=== PATIENT | female | born 1940 | race Caucasian/White ===

== ENCOUNTER 2022-06-09 23:14 | Emergency (ER) | payer MEDICARE, SELFPAY ==
--- NOTE | ~2022-06-09 | XR_ITS ---
Portable chest x-ray Comparison: None Clinical History: CVA Findings: Lungs are clear, without focal consolidation or pleural effusion. Cardiomediastinal silho uette is unremarkable. Bones and soft tissues are unremarkable. Impression: Clear lungs. Reviewed, dictated and finalized at location M. CONTROLLER Impression: Clear lungs.
--- NOTE | ~2022-06-09 | CT_ITS ---
CT ANGIOGRAM NECK AND HEAD History: CVA. Technique: Axial noncontrast imaging of the brain was performed. Serial spiral axial images through t he head and neck were then obtained during arterial phase IV injection of 100 cc of Omnipaque 350. 3- D postprocessing and MIP images were then reconstructed on the remote workstation. Dose reduction wilfrid hnique was used on this scan by utilizing automated exposure control and iterative reconstruction wilfrid hnique. The dose-length product (DLP) was 1599.21 mGy-cm. FINDINGS: Axial noncontrast imaging of the brain demonstrate a 2.7 x 2.2 cm acute parenchymal hemorrh age in the high posterior right parietal lobe, with mild surrounding vasogenic edema. CTA neck findings: Bilateral vertebral arteries are patent. Bile common carotid, internal carotid, a nd external carotid arteries are patent. Several tiny calcified plaques are present at the carotid bi furcation regions bilaterally. The proximal right internal carotid artery demonstrates 0% stenosis re lative to the normal distal artery lumen diameter. The proximal left internal carotid artery demonstr ates 0% stenosis relative to the normal distal artery lumen diameter. Mild to moderate emphysema noted at the lung apices. CTA head findings: Distal vertebral arteries, basilar artery, and posterior cerebral arteries are pat ent. Distal internal carotid arteries, middle cerebral arteries, and anterior cerebral arteries are p atent. No large vessel occlusion. No stenosis or aneurysm. Impression: 2.7 x 2.2 cm parenchymal hemorrhage in the high posterior right parietal lobe. Diagnostic considerati ons include hemorrhagic infarct versus primary parenchymal hemorrhage such as hypertensive hemorrhage . No significant vascular abnormality identified on CT angiographic examination of the head and neck. Emphysematous changes of the lung apices. Reviewed, dictated and finalized at location M. DENT PROGRAM SPECIALIST Impression: 2.7 x 2.2 cm parenchymal hemorrhage in the high posterior right parietal lobe. Diagnostic considerations include hemorrhagic infarct versus primary parenchyma l hemorrhage such as hypertensive hemorrhage. No significant vascular abnormality identified on CT angiographic examination o f the head and neck. Emphysematous changes of the lung apices.
[2022-06-09 23:13] VITALS: BP 176/96; PULSE 103; RESP 20; TEMP 37; O2SAT 93
[2022-06-09 23:21] VITALS: PULSE 98
[2022-06-09 23:21] LABS: Glucose Point of Care 154 mg/dl (65-105)
--- NOTE | 2022-06-09 23:34 | ED.GENADULT ---
HPI - General Adult General Chief complaint: Seizure Stated complaint: SZ Time Seen by Provider: 06/09/22 23:22 History of Present Illness HPI narrative: 82-year-old female with no past medical history presents via EMS. Patient was acting erratically at home began to have tonic-clonic seizure activity in route to our hospital. Patient has minimal recollection of the events which brought her here demonstrates left-sided neglect on exam. Patient to CT scanner. Related Data Allergies Allergy/AdvReac Type Severity Reaction Status Date / Time No Known Allergies Allergy Verified 06/09/22 23:59 Review of Systems Review of Systems: CONSTITUTIONAL: Denies fever, chills, or sweats. EYES: Denies visual changes, redness, or discharge. ENT: Denies rhinorrhea, congestion, sore throat, or otalgia. CARDIOVASCULAR: Denies chest pain, palpitations, or edema. RESPIRATORY: Denies cough or dyspnea. GASTROINTESTINAL: Denies abdominal pain, nausea, vomiting, or diarrhea. GENITOURINARY: Denies dysuria or hematuria. SKIN: Denies rash or itching. MUSCULOSKELETAL: Denies back pain, joint pain, or myalgia. NEUROLOGIC: Denies headache, numbness, or weakness. PSYCHIATRIC: Denies anxiety or depression. Exam Narrative: GENERAL: Well-appearing, well-nourished, and in no acute distress. HEAD: Normocephalic, atraumatic. EYES: PERRLA and EOMI. ENT: Nares clear, no rhinorrhea or epistaxis. Mucous membranes moist. NECK: Supple. CHEST: Clear to auscultation. No respiratory distress. HEART: Regular rate and rhythm. No murmur heard. Normal peripheral pulses. ABDOMEN: Soft, nontender, nondistended, normal active bowel sounds. EXTREMITIES: Normal range of motion. No edema. SKIN: Warm, dry, no rash. NEURO: Left-sided neglect, 5 out of 5 strength in all extremities, no memory of seizure-like activity but patient is answering questions appropriately in our department, . PSYCH: Normal mood and affect. Course Vital Signs Vital signs: Vital Signs Temperature 98.6 F 06/09/22 23:13 Pulse Rate 103 H 06/09/22 23:13 Respiratory Rate 20 06/09/22 23:13 Blood Pressure 176/96 H 06/09/22 23:13 Pulse Oximetry 93 06/09/22 23:13 Oxygen Delivery Room Air 06/09/22 23:13 Temperature 98.6 F 06/09/22 23:13 Pulse Rate 81 06/10/22 02:46 Respiratory Rate 17 06/10/22 02:46 Blood Pressure 132/63 06/10/22 02:46 Pulse Oximetry 96 06/10/22 02:46 Oxygen Delivery Room Air 06/09/22 23:20 Medical Decision Making MDM Narrative Medical decision making narrative: CT with a small acute lobar intraparenchymal hemorrhage in the right parieto-occipital lobe measuring 2.5 x 2.4 x 2 cm. Mild surrounding edema. Nicardipine drip has been started to keep systolic pressure between 1 40-1 60. I discussed the case with from [facility] and Dr. Brantley has accepted the transfer to the emergency department. Patient continues to demonstrate a left-sided neglect but is mentating appropriately and following all commands. I have explained all lab and imaging findings to both patient and her family members who are at bedside. Her cousin and employment officer is here and questions if she may have a DNR although he does not have the paperwork and is not her POA. Vital Signs Vital Signs: Vital Signs Temperature 98.6 F 06/09/22 23:13 Pulse Rate 103 H 06/09/22 23:13 Respiratory Rate 20 06/09/22 23:13 Blood Pressure 176/96 H 06/09/22 23:13 Pulse Oximetry 93 06/09/22 23:13 Oxygen Delivery Room Air 06/09/22 23:13 Temperature 98.6 F 06/09/22 23:13 Pulse Rate 81 06/10/22 02:46 Respiratory Rate 17 06/10/22 02:46 Blood Pressure 132/63 06/10/22 02:46 Pulse Oximetry 96 06/10/22 02:46 Oxygen Delivery Room Air 06/09/22 23:20 Lab Data 06/09/22 23:48 06/09/22 23:48 Labs: Lab Results 06/09/22 06/09/22 06/09/22 Range/Units 23:17 23:48 23:48 WBC 14.9 H (4.5-10.0) K/mm3 RBC 4.4
--- NOTE | 2022-06-09 23:36 | ECG_ITS ---
Measurements Intervals [place] Rate: 101 P: 86 KS: 204 QRS: 60 QRSD: 81 T: 78 QT: 337 QTc: 439 Interpretive Statements SINUS TACHYCARDIA ATRIAL TRIPLET BASELINE ARTIFACT- I, III, AVR, AVL, AVF, V1-V2, V4-V6 BORDERLINE ECG NO PREVIOUS ECG AVAILABLE FOR COMPARISON Electronically Signed On 06-10-2022 7:04:47 RESEARCH CHEMICAL ENGINEER by Markie Trent D.O.
[2022-06-09 23:46] VITALS: BP 184/94; PULSE 103; RESP 17; O2SAT 96
[2022-06-09 23:55] LABS: Basophils Absolute Auto 0.1 K/mm3 (0.0-0.1); Basophils Percent Auto 0.5 % (0.2-1.2); Eosinophils Percent Auto 0.1 % (0-4.4); Hematocrit 43.6 % (37.0-47.0); Hemoglobin 14.2 g/dL (12.0-15.0); Immature Granulocyte Absolute 0.13 K/mm3 (0.00-0.031); Immature Granulocyte Percent A 0.9 % (0-0.5); Lymphocytes Absolute Auto 1.31 K/mm3 (0.9-3.2); Lymphocytes Percent Auto 8.8 % (18.3-44.2); Mean Corpuscular HGB Conc 32.6 g/dl (32-36); Mean Corpuscular Hemoglobin 31.8 pg (26-34); Mean Corpuscular Volume 97.8 fl (80-100); Mean Platelet Volume 9.7 fl (7.4-10.4); Monocytes Absolute Auto 0.9 K/mm3 (0.1-0.6); Neutrophils Absolute Auto 12.4 K/mm3 (1.3-6.7); Neutrophils Percent Auto 83.7 % (45.5-73.1); Platelet Count Result 236 k/mm3 (150-375); Red Blood Count 4.46 M/mm3 (4.2-5.4); White Blood Count 14.9 K/mm3 (4.5-10.0)
[2022-06-10] VITALS (18 sets, daily range): BP systolic 124–179; BP diastolic 58–97; PULSE 76–104; RESP 15–23; O2SAT 94–97
--- NOTE | 2022-06-10 00:01 | PC.NURSE ---
Notified MD Chaudhari of patient BP being 184/94. awaiting orders at this time.
[2022-06-10 00:05] LABS: Prothrombin Time 12.9 Seconds (11.1-14.7)
[2022-06-10 00:07] LABS: Partial Thromboplastin Time 29.1 SECONDS (22.3-36.8)
[2022-06-10 00:12] LABS: Alanine Aminotransferase 19 U/L (6-35); Alkaline Phosphatase 67 U/L (38-126); Anion Gap 8 mmol/L (8-16); Aspartate Amino Transferase 23 U/L (14-36); Bilirubin,Total 0.6 mg/dL (0.2-1.3); Blood Urea Nitrogen 13 mg/dL (7-17); Calcium 8.7 mg/dL (8.4-10.2); Carbon Dioxide 28 mmol/L (22-30); Chloride 99 mmol/L (98-107); Estimated CRCL calculation 34 ml/min; Estimated Glomerular Filt Rate 60; Glucose 147 mg/dL (65-110); Potassium 3.6 mmol/L (3.4-5.0); Sodium 135 mmol/L (137-145)
[2022-06-10 00:13] LABS: Appearance Urine Clear (Clear); Bilirubin Urine Negative (Negative); Blood Urine Trace-intact (Negative); Color Urine Yellow (Yellow); Glucose Urine UA Negative (Negative); Ketones Urine Negative (Negative); Leukocyte Esterase Ur Negative LEU/UL (Negative); Nitrate Urine Negative (Negative); Protein Urine Negative (Negative); Specific Grav Ur 1.015 (1.001-1.035); Urobilinogen Urine 0.2 mg/dL (<2.0); pH Urine 7.5 (5.0-9.0)
[2022-06-10 00:15] LABS: Mucus Urine Rare /lpf; RBC Urine 0-2 /hpf (0-2); Squamous Epithelial Cell Urine Rare /hpf (Few); WBC Urine 0-3 /hpf
[2022-06-10 00:18] LABS: Add Urine Microscopic? YES
[2022-06-10] MEDS: niCARdipine 20 MG/200 ML 20 MG/200 ML BAG 50 MG IV CONT (00:20)
[2022-06-10 00:23] LABS: Troponin I < 0.012 ng/mL (0.000-0.034)
[2022-06-10] MEDS: levETIRAcetam 1000MG/NACL100ML 1,000 MG/100 ML BAG 400 MG IVPB (00:44)
== END 2022-06-10 03:00 | disposition short-term general hospital (02) ==
PROVIDERS: Emergency Provider Emergency Medicine; PCP Family Medicine
DX: G40.909 Epilepsy, unspecified, not intractable, without status epilepticus (principal); I62.9 Nontraumatic intracranial hemorrhage, unspecified
CPT/HCPCS: 36415; 70496; 70498; 71045; 80053; 81001; 82948; 84484; 85025; 85610; 85730; 93005; 96365; 96366; 96368; 99285; J1953; Q9967

== ENCOUNTER 2023-06-07 07:24 | Outpatient (RCR) | payer OTHER, MEDICARE, SELFPAY ==
[2023-06-07] VITALS (12 sets, daily range): BP systolic 84–109; BP diastolic 39–54; PULSE 62–68; RESP 18–20; TEMP 36.9–37.2; O2SAT 94–100
[2023-06-07 07:58] LABS: Hematocrit 24.9 % (37.0-47.0)
[2023-06-07 08:05] LABS: Hemoglobin 6.6 g/dL (12.0-15.0)
--- NOTE | 2023-06-07 08:19 | PC.NURSE ---
Called Dr. Nixon, discussed critical lab values and vital signs. Stated all 3 bp's of 78/33, 84/35 and 84/39. Pt denies any symptoms at this time. Asked about benadryl beforehand and lasix in between units. stated to change benadryl to prn for itchiness and hold lasix d/t low blood pressure.
[2023-06-07] MEDS: FAMOTIDINE 20 MG TABLET PO (09:08)
[2023-06-07] MEDS: SODIUM CHLORIDE 0.9% IV 250 ML 30 ML IV CONT (09:08)
[2023-06-07] MEDS: ACETAMINOPHEN 325 MG TABLET 650 MG PO (09:09)
--- NOTE | 2023-06-07 15:45 | PC.NURSE ---
Pt. with void and small stool mix via [facility]. Noted foul smell and black to mindi liquid. No solid pieces noted in stool. Notified Dr. Nixon's office at [phone], spoke w/ nurse, Delphine. Notified of black to mindi liquid stool in urine and foul odor. States she will let Dr. Nixon know. Pt. denies pain, sob, abdominal pain. VSS. Also made nurse Delphine aware that pt. is prescribed Toprol XL 100mg po bid at [facility]; this am on arrival for blood transfusion, pt. had low bp that was called to Dr. Nixon and resulted in pre med of Benadryl 25mg po being held and Lasix 20mg ivp x 1 between units of blood being held. Pt. and Sofya MARCUM, aware call made to office to report above.
== END 2023-09-05 23:59 | disposition home or self-care (01) ==
LOC: ANHCPCTRAN 07:24
PROVIDERS: PCP Hospitalist; Visit Provider Family Medicine
DX: D64.9 Anemia, unspecified (principal)
CPT/HCPCS: 36415; 36430; 85014; 85018; 86850; 86900; 86901; 86923; A9270; J7050; P9016

== ENCOUNTER 2023-06-21 02:56 | Inpatient (IN) | payer MEDICARE, SELFPAY ==
[2023-06-21] VITALS (14 sets, daily range): BP systolic 125–155; BP diastolic 60–81; PULSE 72–103; RESP 15–18; TEMP 36.4–37; O2SAT 98–100
--- NOTE | ~2023-06-21 | CT_ITS ---
EXAMINATION: CT abdomen pelvis w con DATE: 06/21/2023 05:08 INDICATION: Gastrointestinal hemorrhage TECHNIQUE: Computed tomography (CT) of the abdomen and pelvis was performed with 100 mL Omnipaque 350 intravenous contrast. Automated exposure control and iterative reconstruction technique were employe d. The dose-length product was 202.45 mGy-cm. COMPARISON: None. FINDINGS: The visualized portions of the lung bases demonstrate small pleural effusions and mild depe ndent atelectasis. Cardiomegaly is noted. There is a small pericardial effusion. There are cysts in t he liver measuring up to 13 mm. The gallbladder, spleen, pancreas, and adrenal glands are normal. The re are cysts in the kidneys measuring up to 3.4 cm on the right. There is calcified atherosclerosis o f the aorta and many of the other arteries. There is a 3.4 cm fusiform aneurysm of infrarenal aorta. There are no dilated loops of bowel. The appendix is not visualized. There are no pathologically enla rged lymph nodes. There is no free intraperitoneal fluid. There is an old healed fracture of proximal left femur with internal fixation. There is severe thoracic and lumbar spondylosis. IMPRESSION: 1. Small pleural effusions. 2. Small pericardial effusion. 3. 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 Reviewed, dictated and finalized at location A. LOPMENT TRAINER
--- NOTE | ~2023-06-21 | MR_ITS ---
EXAMINATION: MR pelvis wo/w con DATE: 06/25/2023 10:00 INDICATION: Rectal adenocarcinoma. TECHNIQUE: Magnetic resonance imaging (MRI) of the pelvis was performed without and with 9 mL MultiHa nce intravenous contrast. COMPARISON: CT abdomen and pelvis 06/21/2023 FINDINGS: There is focal wall thickening of the rectum involving the posterior and left sides of the rectum. Th e distal margin of the wall thickening is 3 cm from the anorectal junction. Imaging is not sufficient ly high resolution for T stage determination. No abnormal lymph nodes are identified. There is trace pelvic ascites. There is internal fixation of proximal left femur. 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 There are small bilateral hip joint effusions. There is severe lumbar spondylosis. IMPRESSION: 1. Focal wall thickening of the rectum, consistent with primary adenocarcinoma. Insufficient imaging resolution for T stage determination. 2. No abnormal lymphadenopathy. Reviewed, dictated and finalized at location A. LOOM WEAVER
[2023-06-21] MEDS: SODIUM CHLORIDE 0.9% IV 1,000 ML 999 ML IV CONT (03:36)
[2023-06-21 03:55] LABS: Basophils Absolute Auto 0.1 K/mm3 (0.0-0.1); Basophils Percent Auto 0.9 % (0.2-1.2); Eosinophils Absolute Auto 0.3 K/mm3 (0-0.3); Eosinophils Percent Auto 5.8 % (0-4.4); Hematocrit 21.6 % (37.0-47.0); Immature Granulocyte Absolute 0.01 K/mm3 (0.00-0.031); Immature Granulocyte Percent A 0.2 % (0-0.5); Lymphocytes Absolute Auto 1.47 K/mm3 (0.9-3.2); Lymphocytes Percent Auto 25.9 % (18.3-44.2); Mean Corpuscular HGB Conc 28.2 g/dl (32-36); Mean Corpuscular Hemoglobin 28.8 pg (26-34); Mean Corpuscular Volume 101.9 fl (80-100); Mean Platelet Volume 9.9 fl (7.4-10.4); Monocytes Absolute Auto 0.5 K/mm3 (0.1-0.6); Monocytes Percent Auto 9.3 % (2.6-8.5); Neutrophils Absolute Auto 3.3 K/mm3 (1.3-6.7); Neutrophils Percent Auto 57.9 % (45.5-73.1); Platelet Count Result 254 k/mm3 (150-375); Red Blood Count 2.12 M/mm3 (4.2-5.4); Red Cell Distribution Width 22.4 % (11.5-14.5); White Blood Count 5.7 K/mm3 (4.5-10.0)
[2023-06-21 03:59] LABS: Appearance Urine Clear (Clear); Bacteria Urine None Seen /hpf; Bilirubin Urine Negative (Negative); Color Urine Yellow (Yellow); Glucose Urine UA 1+ mg/dL (Negative); Ketones Urine Negative (Negative); Leukocyte Esterase Ur Negative LEU/UL (Negative); Nitrate Urine Negative (Negative); Non Pathogenic Casts 0-2; Protein Urine Negative (Negative); RBC Urine 0-2 /hpf (0-2); Specific Grav Ur 1.013 (1.001-1.035); Squamous Epithelial Cell Urine None seen /hpf (Few); Urobilinogen Urine 0.2 mg/dL (<2.0); WBC Urine 0-5 /hpf
[2023-06-21 04:01] LABS: Hemoglobin 6.1 g/dL (12.0-15.0)
[2023-06-21 04:02] LABS: Anisocytosis 1+ (NORMAL); Hypochromasia 1+ (NORMAL); Platelet Estimate Adequate (Adequate); Schistocytes None Seen (NORMAL)
[2023-06-21 04:05] LABS: Prothrombin Time 13.3 Seconds (11.1-14.7)
[2023-06-21 04:06] LABS: Alanine Aminotransferase 9 U/L (6-35); Albumin Level 2.6 g/dL (3.5-5.1); Alkaline Phosphatase 56 U/L (38-126); Anion Gap 0 mmol/L (8-16); Aspartate Amino Transferase 19 U/L (14-36); Bilirubin,Total 0.3 mg/dL (0.2-1.3); Blood Urea Nitrogen 17 mg/dL (7-17); Calcium 8.5 mg/dL (8.4-10.2); Carbon Dioxide 36 mmol/L (22-30); Chloride 101 mmol/L (98-107); Estimated CRCL calculation 40 ml/min; Estimated Glomerular Filt Rate > 60; Glucose 87 mg/dL (65-110); Lipase 125 U/L (23-300); Magnesium 2.4 mg/dL (1.6-2.3); Partial Thromboplastin Time 29.5 SECONDS (22.3-36.8); Potassium 4.1 mmol/L (3.4-5.0); Sodium 137 mmol/L (137-145)
--- NOTE | 2023-06-21 04:07 | ED.GENADULT ---
HPI - General Adult General Chief complaint: Recheck/Abnormal Lab/Rx Stated complaint: abd labs Time Seen by Provider: 06/21/23 03:10 History of Present Illness HPI narrative: patient 83-year-old female presents emergency department with chief complaint of low blood counts. Patient is resident of a local nursing facility and apparently had blood work done today that showed that she had a hemoglobin of 5.7 the patient currently has no complaints denies chest pain denies abdominal pain denies shortness of breath incidentally the patient does report that she has had some black stool the patient denies being on blood thinners and review of the patient's medical records from the nursing facility is not on anticoagulants. Related Data Home Medications Medication Instructions Recorded Confirmed acetaminophen 500 mg capsule 500 mg PO Q6H PRN Pain 06/07/23 06/09/23 buspirone 5 mg tablet 5 mg PO BID 06/07/23 06/09/23 cholecalciferol (vitamin D3) 25 50 mcg PO DAILY 06/07/23 06/09/23 mcg (1,000 unit) tablet dapagliflozin propanediol 10 mg 10 mg PO DAILY 06/07/23 06/09/23 tablet (Farxiga) ferrous sulfate 325 mg (65 mg 325 mg PO BID 06/07/23 06/09/23 iron) tablet,delayed release fexofenadine 180 mg tablet 180 mg PO DAILY PRN Allergy 06/07/23 06/09/23 Symptoms fluticasone propionate 50 2 spray intranasal DAILY PRN 06/07/23 06/09/23 mcg/actuation nasal Allergy Symptoms spray,suspension ipratropium 0.5 mg-albuterol 3 mg 3 ml inhalation Q6H PRN Shortness 06/07/23 06/09/23 (2.5 mg base)/3 mL nebulization Of Breath Or Wheezing soln levetiracetam 500 mg tablet 500 mg PO BID 06/07/23 06/09/23 lisinopril 20 mg tablet 20 mg PO BID 06/07/23 06/09/23 metoprolol succinate 100 mg 100 mg PO BID 06/07/23 06/09/23 tablet,extended release 24 hr (Toprol XL) pantoprazole 40 mg tablet,delayed 40 mg PO BID 06/07/23 06/09/23 release sertraline 50 mg tablet 50 mg PO DAILY 06/07/23 06/09/23 spironolactone 50 mg tablet 50 mg PO DAILY 06/07/23 06/09/23 sucralfate 100 mg/mL oral 10 ml PO QID 06/07/23 06/09/23 suspension Allergies Allergy/AdvReac Type Severity Reaction Status Date / Time No Known Allergies Allergy Verified 06/07/23 08:35 Review of Systems Review of Systems: A 10 system review of systems was completed on the patient and is negative except for what is stated in the HPI. Nursing and ancillary documentation was reviewed. [facility] Social History Social History Years smoked: 50 Smoking status: Former smoker Tobacco type: cigarettes Second hand tobacco smoke exposure: No Smoking end date: 06/09/22 Alcohol intake: former Substance use: never Substance use type: does not use Spiritual care concerns: No Exam Narrative: GENERAL: Well-appearing, well-nourished, and in no acute distress. HEAD: Normocephalic, atraumatic. EYES: PERRLA and EOMI. ENT: Nares clear, no rhinorrhea or epistaxis. Mucous membranes moist. NECK: Supple. CHEST: Clear to auscultation. No respiratory distress. HEART: Regular rate and rhythm. No murmur heard. Normal peripheral pulses. ABDOMEN: Soft, nontender, nondistended, normal active bowel sounds. : Stool is black / will colored and is guaiac positive EXTREMITIES: Normal range of motion. No edema. SKIN: Warm, dry, no rash. NEURO: No focal deficits. Alert and oriented x3. PSYCH: Normal mood and affect. Course Vital Signs Vital signs: Vital Signs Temperature 37.0 C 06/21/23 02:58 Pulse Rate 93 06/21/23 02:58 Respiratory Rate 15 06/21/23 02:58 Blood Pressure 138/71 06/21/23 02:58 Pulse Oximetry 99 06/21/23 02:58 Oxygen Delivery Room Air 06/21/23 02:58 Temperature 36.6 C 06/21/23 05:51 Pulse Rate 77 06/21/23 06:28 Respiratory Rate 15 06/21/23 06:28 Blood Pressure 147/81 H 06/21/23 06:28 Pulse Oximetry 100 06/21/23 06:28 Oxygen Delivery Nasal Can
[2023-06-21 04:08] LABS: Add Urine Microscopic? YES
[2023-06-21] MEDS: SODIUM CHLORIDE 0.9% IV 250 ML 30 ML IV CONT (05:10)
[2023-06-21 05:19] LABS: Lactic Acid Reflex 0.6 mmol/L (0.7-2.0)
[2023-06-21] MEDS: PANTOPRAZOLE SODIUM IV 40 MG VIAL IV PUSH (05:58)
[2023-06-21 07:15] LABS: Iron 44 ug/dL (37-170)
[2023-06-21 07:24] LABS: Percent Iron Saturation 16 % (20-50)
[2023-06-21 07:27] LABS: Hematocrit 25.7 % (37.0-47.0); Hemoglobin 7.5 g/dL (12.0-15.0)
[2023-06-21 08:18] LABS: Folic Acid 8.5 ng/mL (2.76->20)
--- NOTE | 2023-06-21 10:55 | ADMGEN ---
This patient, Daly Mary, was admitted to [facility] Surg Room 312-01 @0912. Patient/family oriented to hospital policies and general routines including ID bracelet, bed and alarms, visiting hours, pain management, procedures, bathroom and other care routines, personal items, smoking policy, room service/diet, and visiting hours. Information on how to activate the Rapid Response Team has been discussed. Patient/Family are encouraged to report perceived risks to care and to ask questions if they do not understand what they are told or what they should do.
[2023-06-21] MEDS: IRON SUCROSE COMPLEX 400 MG in SODIUM CHLORIDE 0.9% IV 250 ML 108 MG IVPB (11:37)
[2023-06-21 13:14] LABS: Hematocrit 25.6 % (37.0-47.0); Hemoglobin 7.6 g/dL (12.0-15.0)
--- NOTE | 2023-06-21 14:02 | WPDGICN ---
Assessment and Plan Assessment and plan (1) Acute GI bleeding: Code(s): K92.2 - Gastrointestinal hemorrhage, unspecified Status: Acute Assessment and Plan: She has had black stools for the couple weeks. She believes that she had an EGD here a few weeks ago and was told that nothing was found. I suspect the procedure was done at another institution. (2) Seizures: Code(s): R56.9 - Unspecified convulsions Status: Acute Assessment and Plan: She is on medication for seizures and has not had any recently (3) Anemia: Code(s): D64.9 - Anemia, unspecified Status: Acute Assessment and Plan: her hemoglobin was 6.1 this morning. Last summer was 8.2 indicating that she is chronically anemic. This however is quite low and concerning. She is receiving 1 unit of iron at this time. Plan I will begin her on a prep for colonoscopy. Will also try to find out where she had that EGD. Blood counts we monitored. She may need transfusion she has been started on pantoprazole empirically. GI Consult Note Consult date/time: 06/21/23 14:02 HPI: Daly Mary is a 83 year old female who was brought to emergency room when she was found to have a very low hemoglobin at the [facility] where she has been rehabilitating. She was feeling fatigued and hemoglobin was found to be 5.7. She has not seen blood her stools but states that often she has black stool particularly if she passes gas. She has had no abdominal pain or nausea or vomiting. She is chronically on pantoprazole. She states that in the past year she has been in and out of nursing facility is a couple of times. First she had a stroke last summer. she was in rehab for while after that. Then she fell and broke her hip and was back in rehab. She went back for the 3rd time about 3 weeks ago. She tells me that she had an EGD few weeks ago and they did not find anything and told her that she would probably need a colonoscopy. She thought she had the procedure done here but there is no record in our system of that. she has never had a colonoscopy. She has never had disorders of the colon such as colitis, diverticulitis is not aware of any family history of such. Review of Systems Review of Systems: All systems reviewed & are unremarkable except as noted in HPI and below PMFSH Social History Social History Years smoked: 50 Smoking status: Former smoker Second hand tobacco smoke exposure: No Smoking end date: 05/16/22 Alcohol intake: former Substance use: never Substance use type: does not use Do You Feel Safe in your Home?: Yes Lack of Transportation: No Lack of Food: Never True Current Housing: I Have Housing Concerned About Future Housing: No Difficulty Paying Gas/Electric Bills: No Difficulty Paying for Meds: No Currently Unemployed: No Education: High School Diploma/GED Difficulty w/ Childcare or Family Care: No Spiritual care concerns: No Meds Home Medications and Allergies Home Medications Medication Instructions Recorded Confirmed Type acetaminophen 500 mg capsule 500 mg PO Q6H PRN Pain 06/07/23 06/21/23 History buspirone 5 mg tablet 5 mg PO BID 06/07/23 06/21/23 History cholecalciferol (vitamin D3) 25 50 mcg PO DAILY 06/07/23 06/21/23 History mcg (1,000 unit) tablet dapagliflozin propanediol 10 mg 10 mg PO DAILY 06/07/23 06/21/23 History tablet (Farxiga) ferrous sulfate 325 mg (65 mg 325 mg PO BID 06/07/23 06/21/23 History iron) tablet,delayed release fexofenadine 180 mg tablet 180 mg PO DAILY PRN Allergy 06/07/23 06/21/23 History Symptoms fluticasone propionate 50 2 spray intranasal DAILY PRN 06/07/23 06/21/23 History mcg/actuation nasal Allergy Symptoms spray,suspension ipratropium 0.5 mg-albuterol 3 mg 3 ml inhalation Q6H PRN Shortness 06/07/23 06/21/23 History (2.5 mg base)/3 mL n
--- NOTE | 2023-06-21 14:16 | PM.IMHP ---
H&P: HPI History of Present Illness Date/Time: 06/21/23 14:16 Chief Complaint: low hemoglobin Narrative: 83 yo female with recent hip fracture and ICH who presented from rehab on account of anemia, patient stated she has been having intermittent blood in stool the past 3 months which started back the past couple of days, noted occasional lightheadedness, denies any abd pain, vomiting, no focal weakness, no dysuria. ER eval notable for hb 6.6 and received 2 units of pRBC, CT AP showed small pleural and pericardial effusion and 3.4 cm AAA. Gi consulted and patient scheduled for colonoscopy today. GI eval noted radha had recent EGD Review of Systems Review of Systems: all other systems reviewed and negative except as noted in the [facility] Social History Social History Years smoked: 50 Smoking status: Former smoker Second hand tobacco smoke exposure: No Smoking end date: 05/16/22 Alcohol intake: former Substance use: never Substance use type: does not use Do You Feel Safe in your Home?: Yes Lack of Transportation: No Lack of Food: Never True Current Housing: I Have Housing Concerned About Future Housing: No Difficulty Paying Gas/Electric Bills: No Difficulty Paying for Meds: No Currently Unemployed: No Education: High School Diploma/GED Difficulty w/ Childcare or Family Care: No Spiritual care concerns: No Meds Home Medications and Allergies Home Medications Medication Instructions Recorded Confirmed Type acetaminophen 500 mg capsule 500 mg PO Q6H PRN Pain 06/07/23 06/21/23 History buspirone 5 mg tablet 5 mg PO BID 06/07/23 06/21/23 History cholecalciferol (vitamin D3) 25 50 mcg PO DAILY 06/07/23 06/21/23 History mcg (1,000 unit) tablet dapagliflozin propanediol 10 mg 10 mg PO DAILY 06/07/23 06/21/23 History tablet (Farxiga) ferrous sulfate 325 mg (65 mg 325 mg PO BID 06/07/23 06/21/23 History iron) tablet,delayed release fexofenadine 180 mg tablet 180 mg PO DAILY PRN Allergy 06/07/23 06/21/23 History Symptoms fluticasone propionate 50 2 spray intranasal DAILY PRN 06/07/23 06/21/23 History mcg/actuation nasal Allergy Symptoms spray,suspension ipratropium 0.5 mg-albuterol 3 mg 3 ml inhalation Q6H PRN Shortness 06/07/23 06/21/23 History (2.5 mg base)/3 mL nebulization Of Breath Or Wheezing soln levetiracetam 500 mg tablet 500 mg PO BID 06/07/23 06/21/23 History lisinopril 20 mg tablet 20 mg PO BID 06/07/23 06/21/23 History metoprolol succinate 100 mg 50 mg PO BID 06/07/23 06/21/23 History tablet,extended release 24 hr (Toprol XL) pantoprazole 40 mg tablet,delayed 40 mg PO BID 06/07/23 06/21/23 History release sertraline 50 mg tablet 50 mg PO DAILY 06/07/23 06/21/23 History spironolactone 50 mg tablet 50 mg PO DAILY 06/07/23 06/21/23 History sucralfate 100 mg/mL oral 10 ml PO QID 06/07/23 06/21/23 History suspension albuterol sulfate 2.5 mg/3 mL 2.5 mg inhalation BID PRN SOB 06/21/23 06/21/23 History (0.083 %) solution for nebulization amlodipine 5 mg tablet 5 mg PO DAILY pain 06/21/23 06/21/23 History dextromethorphan-guaifenesin 30 1 tablet PO Q12H PRN Cough 06/21/23 06/21/23 History mg-600 mg tablet extended [id number] hr (Mucinex DM) hydrocodone 5 mg-acetaminophen 325 1 tablet PO Q4H PRN Pain 06/21/23 06/21/23 History mg tablet loperamide 2 mg capsule (Imodium 2 mg PO Q4H PRN Diarrhea 06/21/23 06/21/23 History A-D) Allergies Allergy/AdvReac Type Severity Reaction Status Date / Time No Known Allergies Allergy Verified 06/07/23 08:35 Vital Signs Vital Signs - 24 hr 06/21/23 02:58 06/21/23 05:20 06/21/23 05:20 Temperature 98.6 F Pulse Rate 93 81 Respiratory Rate 15 15 Blood Pressure 138/71 127/68 Pulse Oximetry 99 100 100 Oxygen Delivery Room Air Nasal Cannula Oxygen Flow Rate 3 06/21/23 05:35 06/21/23 05:51 06/21/23 06:28 T
--- NOTE | 2023-06-21 14:34 | PC.NURSE ---
Per Dr Chu hold unit of blood until results of 1300 H&H. Admin if hemoglobin drops below 7.
[2023-06-21] MEDS: polyethylene glycoL 3350 238 GM BOTTLE PO (16:06)
[2023-06-21] MEDS: BISACODYL 5 MG TABLET EC 10 MG PO ×2 (16:06→21:37)
[2023-06-21 21:10] LABS: Hematocrit 27.8 % (37.0-47.0); Hemoglobin 7.9 g/dL (12.0-15.0)
[2023-06-22] VITALS (13 sets, daily range): BP systolic 134–165; BP diastolic 51–86; PULSE 78–90; RESP 16–20; TEMP 35.8–36.9; O2SAT 92–100
[2023-06-22 01:43] LABS: Hematocrit 24.1 % (37.0-47.0); Hemoglobin 7.1 g/dL (12.0-15.0)
[2023-06-22 06:41] LABS: Basophils Absolute Auto 0.1 K/mm3 (0.0-0.1); Eosinophils Absolute Auto 0.2 K/mm3 (0-0.3); Eosinophils Percent Auto 4.7 % (0-4.4); Hematocrit 25.5 % (37.0-47.0); Hemoglobin 7.4 g/dL (12.0-15.0); Immature Granulocyte Absolute 0.02 K/mm3 (0.00-0.031); Immature Granulocyte Percent A 0.4 % (0-0.5); Lymphocytes Absolute Auto 0.74 K/mm3 (0.9-3.2); Lymphocytes Percent Auto 15.2 % (18.3-44.2); Mean Corpuscular Hemoglobin 28.8 pg (26-34); Mean Corpuscular Volume 99.2 fl (80-100); Mean Platelet Volume 9.7 fl (7.4-10.4); Monocytes Absolute Auto 0.4 K/mm3 (0.1-0.6); Monocytes Percent Auto 9.1 % (2.6-8.5); Neutrophils Absolute Auto 3.4 K/mm3 (1.3-6.7); Neutrophils Percent Auto 69.6 % (45.5-73.1); Platelet Count Result 223 k/mm3 (150-375); Red Blood Count 2.57 M/mm3 (4.2-5.4); Red Cell Distribution Width 21.9 % (11.5-14.5); White Blood Count 4.9 K/mm3 (4.5-10.0)
[2023-06-22] MEDS: MAGNESIUM CITRATE 300 ML BTL 150 ML PO (06:49)
[2023-06-22 07:12] LABS: Anisocytosis 1+ (NORMAL); Hypochromasia 1+ (NORMAL); Platelet Estimate Adequate (Adequate); Schistocytes None Seen (NORMAL)
[2023-06-22 07:19] LABS: Lactic Acid Reflex 1.1 mmol/L (0.7-2.0)
[2023-06-22 07:23] LABS: Alanine Aminotransferase 9 U/L (6-35); Albumin Level 2.3 g/dL (3.5-5.1); Alkaline Phosphatase 49 U/L (38-126); Anion Gap -1 mmol/L (8-16); Aspartate Amino Transferase 17 U/L (14-36); Bilirubin,Total 0.4 mg/dL (0.2-1.3); Blood Urea Nitrogen 9 mg/dL (7-17); Calcium 8.1 mg/dL (8.4-10.2); Carbon Dioxide 30 mmol/L (22-30); Chloride 106 mmol/L (98-107); Estimated CRCL calculation 46 ml/min; Estimated Glomerular Filt Rate > 60; Glucose 99 mg/dL (65-110); Potassium 3.4 mmol/L (3.4-5.0); Sodium 135 mmol/L (137-145)
[2023-06-22] MEDS: PANTOPRAZOLE SODIUM IV 40 MG VIAL IV PUSH (08:49)
[2023-06-22] MEDS: ALBUMIN HUMAN 25% 25 GM/100 ML 100 ML IVPB (10:18)
[2023-06-22] MEDS: IRON SUCROSE COMPLEX 300 MG in SODIUM CHLORIDE 0.9% IV 250 ML 177 MG IVPB (11:57)
--- NOTE | 2023-06-22 12:59 | PC.NURSE ---
patient to GI lab via stretcher
[2023-06-22] MEDS: LACTATED RINGERS 1,000 ML 150 ML IV CONT (13:36)
--- NOTE | 2023-06-22 13:52 | WPDANESEPPF ---
Anes - Initial Pre Proc Eval Procedure: Operation Date: 06/22/23 14:00 Proposed Procedures p Colonoscopy - Den Andrade MD Date/Time: 06/22/23 13:52 Surgeon: Belkis Porter DO Pre Op Diagnosis: GI Bleed/ Anemia Patient Data Age: 83 Gender: F Height: 1.55 m Weight: 47.2 kg Last Vital Signs Temp 97.9 F 06/22/23 13:25 Pulse 88 06/22/23 13:25 Resp 18 06/22/23 13:25 BP 159/71 H 06/22/23 13:25 Pulse Ox 98 06/22/23 13:25 O2 Del Method Room Air 06/22/23 13:25 O2 Flow Rate 2 06/22/23 12:58 Allergies Allergy/AdvReac Type Severity Reaction Status Date / Time No Known Allergies Allergy Verified 06/22/23 13:22 Home Medications Medication Instructions Recorded Confirmed Type acetaminophen 500 mg capsule 500 mg PO Q6H PRN Pain 06/07/23 06/21/23 History buspirone 5 mg tablet 5 mg PO BID 06/07/23 06/21/23 History cholecalciferol (vitamin D3) 25 50 mcg PO DAILY 06/07/23 06/21/23 History mcg (1,000 unit) tablet dapagliflozin propanediol 10 mg 10 mg PO DAILY 06/07/23 06/21/23 History tablet (Farxiga) ferrous sulfate 325 mg (65 mg 325 mg PO BID 06/07/23 06/21/23 History iron) tablet,delayed release fexofenadine 180 mg tablet 180 mg PO DAILY PRN Allergy 06/07/23 06/21/23 History Symptoms fluticasone propionate 50 2 spray intranasal DAILY PRN 06/07/23 06/21/23 History mcg/actuation nasal Allergy Symptoms spray,suspension ipratropium 0.5 mg-albuterol 3 mg 3 ml inhalation Q6H PRN Shortness 06/07/23 06/21/23 History (2.5 mg base)/3 mL nebulization Of Breath Or Wheezing soln levetiracetam 500 mg tablet 500 mg PO BID 06/07/23 06/21/23 History lisinopril 20 mg tablet 20 mg PO BID 06/07/23 06/21/23 History metoprolol succinate 100 mg 50 mg PO BID 06/07/23 06/21/23 History tablet,extended release 24 hr (Toprol XL) pantoprazole 40 mg tablet,delayed 40 mg PO BID 06/07/23 06/21/23 History release sertraline 50 mg tablet 50 mg PO DAILY 06/07/23 06/21/23 History spironolactone 50 mg tablet 50 mg PO DAILY 06/07/23 06/21/23 History sucralfate 100 mg/mL oral 10 ml PO QID 06/07/23 06/21/23 History suspension albuterol sulfate 2.5 mg/3 mL 2.5 mg inhalation BID PRN SOB 06/21/23 06/21/23 History (0.083 %) solution for nebulization amlodipine 5 mg tablet 5 mg PO DAILY pain 06/21/23 06/21/23 History dextromethorphan-guaifenesin 30 1 tablet PO Q12H PRN Cough 06/21/23 06/21/23 History mg-600 mg tablet extended hr (Mucinex DM) hydrocodone 5 mg-acetaminophen 325 1 tablet PO Q4H PRN Pain 06/21/23 06/21/23 History mg tablet loperamide 2 mg capsule (Imodium 2 mg PO Q4H PRN Diarrhea 06/21/23 06/21/23 History A-D) Laboratory Tests 06/21/23 06/21/23 06/22/23 03:28 21:02 01:22 WBC RBC Hgb 7.9 L g/dL 7.1 L g/dL (12.0-15.0) (12.0-15.0) Hct 27.8 L % 24.1 L % (37.0-47.0) (37.0-47.0) MCV MCH MCHC RDW Plt Count MPV Immature Gran % (Auto) Neut % (Auto) Lymph % (Auto) [place] % (Auto) Eos % (Auto) Baso % (Auto) Lymph # (Auto) [place] # (Auto) Eos # (Auto) Baso # (Auto) Abs Immat Gran (auto) Absolute Neuts (auto) Absolute Nucleated RBC Nucleated RBC % Platelet Estimate Hypochromasia Anisocytosis Schistocytes Sodium Potassium Chloride Carbon Dioxide Anion Gap BUN Creatinine Estim Creat Clear Calc Estimated GFR Glucose Lactic Acid Calcium Total Bilirubin AST ALT Alkaline Phosphatase Total Protein Albumin
--- NOTE | 2023-06-22 16:11 | PM.IMPN ---
Progress Note: A&P Assessment and Plan (1) Anemia: Code(s): D64.9 - Anemia, unspecified Status: Acute Assessment and Plan: hb 7.6, pretransfusion iron profile isat 16, IV iron 700/1000mg monitor h and H, transfusion threshold at 7 got hb (2) Acute GI bleeding: Code(s): K92.2 - Gastrointestinal hemorrhage, unspecified Status: Acute Assessment and Plan: For colonoscopy today IVF monitor (3) Hypertension: Code(s): I10 - Essential (primary) hypertension Status: Acute Assessment and Plan: titrate home meds with clinical course (4) Femur fracture, left: Code(s): S72.92XA - Unspecified fracture of left femur, initial encounter for closed fracture Status: Acute Assessment and Plan: continue PT/OT, PRn pain control will continue rehab on discharge (5) Seizures: Code(s): R56.9 - Unspecified convulsions Status: Acute Assessment and Plan: continue home meds (6) Intraparenchymal hemorrhage of brain: Code(s): I61.9 - Nontraumatic intracerebral hemorrhage, unspecified Status: Acute Assessment and Plan: No anticoagulation and antiplatelets (7) AAA (abdominal aortic aneurysm): Code(s): I71.40 - Abdominal aortic aneurysm, without rupture, unspecified Status: Acute Assessment and Plan: 3.4cm continue outpatient monitoring Plan No Ac due to recent ICh Subjective Date/time seen: 06/22/23 16:11 Interval history: comfortable and awaiting colonoscopy today Review of Systems Review of Systems: all other systems reviewed and negative except as noted in the HPI Exam HENMT: Ears: TM's normal bilaterally Eyes: General: appearance normal, both eyes and all related structures Neck: Neck: supple and no JVD Resp: Effort & Inspection: normal respiratory effort Auscultation: clear to auscultation bilaterally Cardio: Rate: regular rate Rhythm: regular rhythm Skin: General skin exam: normal color and no rashes or lesions noted Neuro: Motor exam (neuro): 5/5 motor strength present throughout Extrem: General: normal to inspection and normal exam except as noted Objective Data Vital Signs Vital Signs: Vital Signs - 24 hr 06/21/23 21:12 06/21/23 20:00 06/21/23 20:00 Temperature 98.2 F Pulse Rate 84 84 103 H Respiratory Rate 16 16 Blood Pressure 155/80 H Pulse Oximetry 98 98 Oxygen Delivery Nasal Cannula Oxygen Flow Rate 2 06/22/23 00:00 06/22/23 04:00 06/22/23 06:27 Temperature 97.9 F Pulse Rate 89 78 80 Respiratory Rate 16 Blood Pressure 143/69 H Pulse Oximetry 98 Oxygen Delivery Oxygen Flow Rate 06/22/23 08:00 06/22/23 12:58 06/22/23 12:00 Temperature Pulse Rate 80 80 Respiratory Rate Blood Pressure Pulse Oximetry 92 Oxygen Delivery Nasal Cannula Oxygen Flow Rate 2 06/22/23 13:25 06/22/23 15:05 06/22/23 15:15 Temperature 97.9 F Pulse Rate 88 89 80 Respiratory Rate 18 17 20 Blood Pressure 159/71 H 135/51 L 134/54 L Pulse Oximetry 98 98 100 Oxygen Delivery Room Air Room Air Room Air Oxygen Flow Rate 06/22/23 15:25 Temperature Pulse Rate 90 Respiratory Rate 20 Blood Pressure 157/71 H Pulse Oximetry 100 Oxygen Delivery Room Air Oxygen Flow Rate Intake/Output Intake/Output: Intake & Output 06/19/23 06/20/23 06/21/23 06/22/23 23:59 23:59 23:59 23:59 Intake Total 2650 200 Output Total 1 Balance 2649 200 Meds/Results Medications: Active Medications Generic Name Dose Route Start Last Admin Trade Name Freq PRN Reason Stop Dose Admin Pantoprazole Sodium 40 mg 06/22/23 09:00 06/22/23 08:49 Pantoprazole Sodium Iv 40 Mg Vial IV PUSH 40 mg QAM MELIZA Administration Radiology Results: ITS Impressions Abdomen/Pelvis CT 06/21/23 05:57 IMPRESSION: 1. Small pleural effusions. 2. Small pericardial effusion. 3. 3.4 cm fusiform aneurysm of infra
[2023-06-22] MEDS: ACETAMINOPHEN 500 MG TABLET PO (20:41)
[2023-06-23] VITALS (8 sets, daily range): BP systolic 115–164; BP diastolic 58–99; PULSE 73–97; RESP 16–18; TEMP 36.1–36.9; O2SAT 91–100
[2023-06-23] MEDS: ALBUMIN HUMAN 25% 25 GM/100 ML 100 ML IVPB (10:10)
[2023-06-23] MEDS: PANTOPRAZOLE SODIUM IV 40 MG VIAL IV PUSH (10:11)
--- NOTE | 2023-06-23 10:19 | PM.CNGS ---
Assessment and Plan Assessment and plan (1) Rectal mass: Code(s): K62.89 - Other specified diseases of anus and rectum Status: Acute Assessment and Plan: I have reviewed the imaging and the endoscopy report. Patient has evidence of rectal mass at 8 cm from the anal verge. Biopsies are still pending. She will need repeat endoscopy with tattooing to adequately identify this either surgically or at follow-up endoscopies. Pending results of the biopsy, she will also likely need an MRI of her pelvis. This mass appears very low in the rectum and at 8 cm I would likely recommend referral to a colorectal surgeon for evaluation. She will also likely need to see medical and radiation oncology if this is cancer. If she is not actively bleeding, much of this can be performed as an outpatient after she is discharged. Will continue to follow patient and await pathology results. (2) HTN (hypertension), benign: Code(s): I10 - Essential (primary) hypertension Status: Acute (3) History of intracranial hemorrhage: Code(s): Z86.79 - Personal history of other diseases of the circulatory system Status: Acute History of Present Illness Consult details Consult date: 06/23/23 Reason for consult: other (Rectal mass) Requesting physician: Den Andrade MD Narrative: This is an 83-year-old woman who I am asked to see for a rectal mass. She was sent to the [facility] department [facility] for a new finding of significant anemia. [facility]. She had been experiencing intermittent blood in her stool for about the last 3 or 4 months. She denies any rectal pain but was occasionally having some diarrhea. She had never had a colonoscopy before. She underwent colonoscopy on 06/22/2023 and a rectal mass was identified at 8 cm from the anal verge. Biopsies were performed. She did have a CT abdomen and pelvis on 06/21/2023 which did not show any signs of metastases. Biopsies are still pending and no further workup has been performed yet. Review of Systems Review of Systems: All systems reviewed & are unremarkable except as noted in HPI and below Constitutional: Constitutional: Denies chills and Denies fever(s) Eyes: Eyes: Denies change in vision ENT: Denies hearing loss, Denies neck pain and Denies sore throat Cardiovascular: Cardiovascular: Denies chest pain and Denies dyspnea Respiratory: Respiratory: Denies cough, Denies dyspnea and Denies wheezing Gastrointestinal: Gastrointestinal: Reports as per HPI Genitourinary: Genitourinary: Denies hematuria and Denies dysuria Musculoskeletal: Musculoskeletal: Denies arthralgias, Denies joint swelling and Denies neck pain Allergic/Immunologic: Allergic/Immunologic: Denies wheezing [facility] Past Medical History Medical History (Updated 06/23/23 @ 10:29 by Nolan Louis DO) History of intracranial hemorrhage HTN (hypertension), benign Seizure Surgical History Surgical History (Updated 06/23/23 @ 10:27 by Nolan Louis DO) History of repair of hip fracture Family History Family History (Updated 06/23/23 @ 10:28 by Nolan Louis DO) Grandparent Carcinoma of colon Social History Social History Years smoked: 50 Smoking status: Former smoker Second hand tobacco smoke exposure: No Smoking end date: 05/16/22 Alcohol intake: former Substance use: never Substance use type: does not use Do You Feel Safe in your Home?: Yes Lack of Transportation: No Lack of Food: Never True Current Housing: I Have Housing Concerned About Future Housing: No Difficulty Paying Gas/Electric Bills: No Difficulty Paying for Meds: No Currently Unemployed: No Education: High School Diploma/GED Difficulty w/ Childcare or Family Care: No Spiritual care concerns: No Meds Home Medications and Allergies
[2023-06-23] MEDS: IRON SUCROSE COMPLEX 300 MG in SODIUM CHLORIDE 0.9% IV 250 ML 177 MG IVPB (13:14)
--- NOTE | 2023-06-23 13:45 | PM.IMPN ---
Progress Note: A&P Assessment and Plan (1) Anemia: Code(s): D64.9 - Anemia, unspecified Status: Acute Assessment and Plan: hb 7.4, pretransfusion iron profile isat 16, IV iron 700/1000mg monitor h and H, transfusion threshold at 7 got hb monitor one more day (2) Acute GI bleeding: Code(s): K92.2 - Gastrointestinal hemorrhage, unspecified Status: Acute Assessment and Plan: For colonoscopy today IVF monitor (3) Hypertension: Code(s): I10 - Essential (primary) hypertension Status: Acute Assessment and Plan: titrate home meds with clinical course (4) Femur fracture, left: Code(s): S72.92XA - Unspecified fracture of left femur, initial encounter for closed fracture Status: Acute Assessment and Plan: continue PT/OT, PRn pain control will continue rehab on discharge (5) Seizures: Code(s): R56.9 - Unspecified convulsions Status: Acute Assessment and Plan: continue home meds (6) Intraparenchymal hemorrhage of brain: Code(s): I61.9 - Nontraumatic intracerebral hemorrhage, unspecified Status: Acute Assessment and Plan: No anticoagulation and antiplatelets (7) AAA (abdominal aortic aneurysm): Code(s): I71.40 - Abdominal aortic aneurysm, without rupture, unspecified Status: Acute Assessment and Plan: 3.4cm continue outpatient monitoring (8) Rectal mass: Code(s): K62.89 - Other specified diseases of anus and rectum Status: Acute Assessment and Plan: s/p colonoscopy GSurgery eval noted, GI will continue follow outpatient Will monitor patient one more day and if hemoglobin continue to be stable Plan No Ac due to recent ICh Subjective Date/time seen: 06/23/23 13:45 Interval history: Colonoscopy showed rectal mass Presented with GI bleed with severe anemia requiring blood transfusion GI and Gen surgery on board and recommending outpatient follow up will monitor patient one more night for possible discharge tomorrow if Hb remains stable Review of Systems Review of Systems: all other systems reviewed and negative except as noted in the HPI Exam HENMT: Ears: TM's normal bilaterally Eyes: General: appearance normal, both eyes and all related structures Neck: Neck: supple and no JVD Resp: Effort & Inspection: normal respiratory effort Auscultation: clear to auscultation bilaterally Cardio: Rate: regular rate Rhythm: regular rhythm Skin: General skin exam: normal color and no rashes or lesions noted Neuro: Motor exam (neuro): 5/5 motor strength present throughout Extrem: General: normal to inspection and normal exam except as noted Objective Data Vital Signs Vital Signs: Vital Signs - 24 hr 06/22/23 15:05 06/22/23 15:15 06/22/23 15:25 Temperature Pulse Rate 89 80 90 Respiratory Rate 17 20 20 Blood Pressure 135/51 L 134/54 L 157/71 H Pulse Oximetry 98 100 100 Oxygen Delivery Room Air Room Air Room Air Oxygen Flow Rate 06/22/23 14:00 06/22/23 19:55 06/22/23 21:44 Temperature 96.4 F L 98.4 F Pulse Rate 81 90 80 Respiratory Rate 16 20 18 Blood Pressure 165/86 H 138/68 Pulse Oximetry 100 100 100 Oxygen Delivery Room Air Oxygen Flow Rate 06/23/23 00:00 06/23/23 04:00 06/23/23 05:57 Temperature 98.1 F Pulse Rate 80 73 80 Respiratory Rate 18 Blood Pressure 145/77 H Pulse Oximetry 99 Oxygen Delivery Oxygen Flow Rate 06/23/23 09:16 Temperature Pulse Rate Respiratory Rate Blood Pressure Pulse Oximetry 91 Oxygen Delivery Nasal Cannula Oxygen Flow Rate 3 Intake/Output Intake/Output: Intake & Output 06/20/23 06/21/23 06/22/23 06/23/23 23:59 23:59 23:59 23:59 Intake Total 2650 440 390 Output Total 1 200 Balance 2649 240 390 Meds/Results Medications: Active Medications Generic Name Dose Route Start Last Admin Trade Name Freq PRN
--- NOTE | 2023-06-23 14:03 | WPDANESPN ---
Anes - Prog Note Post-Op Date/Time: 06/23/23 14:03 Cardiovascular status: normal Respiratory status: normal Airway patency: baseline Mental status: baseline Post-Op hydration status: normal Vital Signs: Last Vital Signs Temp 96.9 F L 06/23/23 13:55 Pulse 91 06/23/23 13:55 Resp 16 06/23/23 13:55 BP 115/58 L 06/23/23 13:55 Pulse Ox 99 06/23/23 13:55 O2 Del Method Nasal Cannula 06/23/23 09:16 O2 Flow Rate 3 06/23/23 09:16 Pain Score (VAS): 0 I/O: Intake & Output 06/22/23 06/23/23 06/23/23 23:59 07:59 15:59 Intake Total 240 50 580 Output Total 200 Balance 40 50 580 Laboratory Tests 06/22/23 06:03 06/22/23 06:03 Post-procedural complaints: none Patient Feedback: Patient satisfied with anesthetic care.
[2023-06-24] VITALS (7 sets, daily range): BP systolic 110–160; BP diastolic 60–81; PULSE 70–103; RESP 16–20; TEMP 36.2–37.2; O2SAT 96–100
[2023-06-24 07:21] LABS: Basophils Percent Auto 0.7 % (0.2-1.2); Eosinophils Absolute Auto 0.3 K/mm3 (0-0.3); Eosinophils Percent Auto 6.6 % (0-4.4); Hematocrit 26.2 % (37.0-47.0); Hemoglobin 7.5 g/dL (12.0-15.0); Immature Granulocyte Absolute 0.01 K/mm3 (0.00-0.031); Immature Granulocyte Percent A 0.2 % (0-0.5); Lymphocytes Absolute Auto 0.87 K/mm3 (0.9-3.2); Lymphocytes Percent Auto 21.4 % (18.3-44.2); Mean Corpuscular HGB Conc 28.6 g/dl (32-36); Mean Corpuscular Hemoglobin 28.7 pg (26-34); Mean Corpuscular Volume 100.4 fl (80-100); Mean Platelet Volume 9.3 fl (7.4-10.4); Monocytes Absolute Auto 0.4 K/mm3 (0.1-0.6); Monocytes Percent Auto 9.6 % (2.6-8.5); Neutrophils Absolute Auto 2.5 K/mm3 (1.3-6.7); Neutrophils Percent Auto 61.5 % (45.5-73.1); Platelet Count Result 192 k/mm3 (150-375); Red Blood Count 2.61 M/mm3 (4.2-5.4); Red Cell Distribution Width 20.3 % (11.5-14.5); White Blood Count 4.1 K/mm3 (4.5-10.0)
[2023-06-24 07:32] LABS: Alanine Aminotransferase 8 U/L (6-35); Albumin Level 2.9 g/dL (3.5-5.1); Alkaline Phosphatase 50 U/L (38-126); Anion Gap 0 mmol/L (8-16); Aspartate Amino Transferase 18 U/L (14-36); Bilirubin,Total 0.4 mg/dL (0.2-1.3); Blood Urea Nitrogen 7 mg/dL (7-17); Calcium 8.3 mg/dL (8.4-10.2); Carbon Dioxide 34 mmol/L (22-30); Chloride 103 mmol/L (98-107); Estimated CRCL calculation 46 ml/min; Estimated Glomerular Filt Rate > 60; Glucose 89 mg/dL (65-110); Magnesium 2.3 mg/dL (1.6-2.3); Potassium 3.7 mmol/L (3.4-5.0); Sodium 137 mmol/L (137-145)
--- NOTE | 2023-06-24 12:16 | WPDGIPROGNO ---
Progress Note: A&P Assessment and Plan (1) Acute GI bleeding: Code(s): K92.2 - Gastrointestinal hemorrhage, unspecified Status: Acute Assessment and Plan: She has had black stools for the couple weeks. She believes that she had an EGD here a few weeks ago and was told that nothing was found. I suspect the procedure was done at another institution. colonoscopy did reveal a rectal mass. Biopsies confirm adenocarcinoma. Surgery has seen her. It is our impression she would be best served at institution with dedicated colorectal surgery. She states that she has already discussed this with her family. From my perspective she can be discharged. (2) Seizures: Code(s): R56.9 - Unspecified convulsions Status: Acute Assessment and Plan: She is on medication for seizures and has not had any recently (3) Anemia: Code(s): D64.9 - Anemia, unspecified Status: Acute Assessment and Plan: her hemoglobin was 6.1 this morning. Last summer was 8.2 indicating that she is chronically anemic. This however is quite low and concerning. She is receiving 1 unit of iron at this time. Blood counts are stable now Plan I will begin her on a prep for colonoscopy. Will also try to find out where she had that EGD. Blood counts we monitored. She may need transfusion she has been started on pantoprazole empirically. Subjective Date/time seen: 06/24/23 12:16 she has no complaints. She and I discussed the fact that she would be likely to go to [facility] for resection of the mass. 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 No further bleeding Exam Const: General: cooperative and healthy appearing Orientation/consciousness: patient oriented x3 HENMT: Head: normal to inspection Ears: TM's normal bilaterally Mouth: Yes Normal oral and palatal mucosa present Eyes: General: appearance normal, both eyes and all related structures Neck: Neck: supple and no JVD Chest: Chest palpation & inspection: normal inspection of the chest Resp: Effort & Inspection: normal respiratory effort Auscultation: clear to auscultation bilaterally Cardio: Rate: regular rate Rhythm: regular rhythm GI: Inspection: normal to inspection Auscultation: normal bowel sounds Skin: General skin exam: normal color and no rashes or lesions noted Neuro: General: patient oriented x3 Speech: normal speech Motor exam (neuro): 5/5 motor strength present throughout Extrem: General: normal to inspection and normal exam except as noted Objective Data Vital Signs Vital Signs: Vital Signs - 24 hr 06/23/23 13:55 06/23/23 20:15 06/23/23 20:00 Temperature 36.1 C L 36.9 C Pulse Rate 91 97 Respiratory Rate 16 16 Blood Pressure 115/58 L 164/99 H Pulse Oximetry 99 100 96 Oxygen Delivery Nasal Cannula Oxygen Flow Rate 2 06/24/23 05:28 06/23/23 20:00 06/24/23 00:00 Temperature 36.8 C Pulse Rate 100 84 78 Respiratory Rate 16 Blood Pressure 160/81 H Pulse Oximetry 96 Oxygen Delivery Oxygen Flow Rate 06/24/23 04:00 06/24/23 10:22 Temperature Pulse Rate 70 Respiratory Rate Blood Pressure Pulse Oximetry Oxygen Delivery Nasal Cannula Oxygen Flow Rate 3 Intake/Output Intake/Output: Intake & Output 06/21/23 06/22/23 06/23/23 06/24/23 23:59 23:59 23:59 23:59 Intake Total 2650 440 870 240 Output Total 1 200 Balance 2649 240 870 240 Meds/Results Medications: Active Medications Generic Name Dose Route Start Last Admin Trade Name Freq PRN Reason Stop Dose Admin Acetaminophen 500 mg 06/22/23 20:38 06/22/23 20:41 Acetaminophen 500 Mg Tablet PO 500 mg Q4H PRN Administration Mild Pain (1-3) or Fever Pantoprazole Sodium 40 mg 06/22/23 09:00 06/23/23 10:11 Pantoprazole Sodium Iv 40 Mg Vial IV PUSH 40 mg QAM MELIZA Administration Radiology Results: ITS Impressions Abdomen/Pelvis CT 06/21/23 05:5
--- NOTE | 2023-06-24 13:26 | PM.IMPN ---
Progress Note: A&P Assessment and Plan (1) Anemia: Code(s): D64.9 - Anemia, unspecified Status: Acute Assessment and Plan: hb 7.4, pretransfusion iron profile isat 16, IV iron 700/1000mg monitor h and H, transfusion threshold at 7 got hb monitor one more day (2) Acute GI bleeding: Code(s): K92.2 - Gastrointestinal hemorrhage, unspecified Status: Acute Assessment and Plan: For colonoscopy today IVF monitor (3) Hypertension: Code(s): I10 - Essential (primary) hypertension Status: Acute Assessment and Plan: titrate home meds with clinical course (4) Femur fracture, left: Code(s): S72.92XA - Unspecified fracture of left femur, initial encounter for closed fracture Status: Acute Assessment and Plan: continue PT/OT, PRn pain control will continue rehab on discharge (5) Seizures: Code(s): R56.9 - Unspecified convulsions Status: Acute Assessment and Plan: continue home meds (6) Intraparenchymal hemorrhage of brain: Code(s): I61.9 - Nontraumatic intracerebral hemorrhage, unspecified Status: Acute Assessment and Plan: No anticoagulation and antiplatelets (7) AAA (abdominal aortic aneurysm): Code(s): I71.40 - Abdominal aortic aneurysm, without rupture, unspecified Status: Acute Assessment and Plan: 3.4cm continue outpatient monitoring (8) Rectal mass: Code(s): K62.89 - Other specified diseases of anus and rectum Status: Acute Assessment and Plan: s/p colonoscopy GSurgery eval noted, GI will continue follow outpatient Will monitor patient one more day and if hemoglobin continue to be stable Plan 83-year-old female presented with the anemia she [facility] which showed hemoglobin of 5.7. No chest pain abdominal pain shortness of breath. She reported some black stool on admission not on any anticoagulant. Does have chronic anemia with baseline hemoglobin around 8. Guaiac-positive stool started on Protonix and transfusion. CT scan of the abdomen showed under 5 cm abdominal aortic aneurysm GI was consulted. Colonoscopy 06/22/2023 with rectal mass. Partially obstructing 30 mm x 40 mm mass culture rectum. Mass appeared at the depth of 8 mm from the annulus. Biopsies were taken. General surgery consulted. Will need a repeat endoscopy with tattooing to adequately identify this either surgical ER at follow-up endoscopies. Pending result of biopsy. Likely need MRI of the pelvis appears low in rectum and likely needs colorectal surgeon for evaluation. This could be performed as an outpatient basis. Biopsy confirms adeno carcinoma History of intracranial bleed Hypertension 3.4 cm infrarenal aneurysm Hypoxia on 3 L nasal cannula continue to taper oxygen down Subjective Date/time seen: 06/24/23 13:26 Interval history: 83-year-old female presented with the anemia she is a [facility] blood work was done which showed hemoglobin of 5.7. No chest pain abdominal pain shortness of breath. She reported some black stool on admission not on any anticoagulant. Does have chronic anemia with baseline hemoglobin around 8. Guaiac-positive stool started on Protonix and transfusion. CT scan of the abdomen showed under 5 cm abdominal aortic aneurysm GI was consulted. Colonoscopy 06/22/2023 with rectal mass. Partially obstructing 30 mm x 40 mm mass culture rectum. Mass appeared at the depth of 8 mm from the annulus. Biopsies were taken. General surgery consulted. Will need a repeat endoscopy with tattooing to adequately identify this either surgical ER at follow-up endoscopies. Pending result of biopsy. Likely need MRI of the pelvis appears low in rectum and likely needs colorectal surgeon for evaluation. This could be performed as an outpatient basis. Biopsy
[2023-06-24] MEDS: SERTRALINE HCL 50 MG TABLET PO (14:46)
[2023-06-24] MEDS: EMPAGLIFLOZIN 25 MG TABLET PO (14:46)
[2023-06-24] MEDS: busPIRone HCL 5 MG TABLET PO (14:46)
[2023-06-24] MEDS: SPIRONOLACTONE 50 MG TABLET PO (14:46)
[2023-06-24] MEDS: amLODIPine BESYLATE 5 MG TABLET PO (14:46)
[2023-06-24] MEDS: FERROUS SULFATE 325 MG TABLET DR PO (16:50)
[2023-06-24] MEDS: levETIRAcetam 500 MG TABLET PO (16:50)
[2023-06-24] MEDS: lisinopriL 20 MG TABLET PO (16:50)
[2023-06-24] MEDS: PANTOPRAZOLE 40 MG TABLET PO (16:50)
--- NOTE | 2023-06-24 17:09 | PDONCCN ---
[facility] - Date of Consult Date/Time: 06/24/23 17:09 Requesting Physician: Belkis Porter DO Primary Care Provider: Bernardo BazanJr. MD - Consult Narrative Reason for consult: Rectal cancer Narrative: Daly Mary is a 83 year old female history of hypertension and drug renal hemorrhage. Stool with hematochezia and melena. Labs showed hemoglobin of 6.1. She has intermittent constipation. CT scan showed small pleural effusion and pericardial effusion. Patient had colonoscopy done that showed revealed rectal mass. 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 She has no previous history of malignancy. Chest pain and abdominal pain. She has lost 20 lb weight since COVID in 2019. No other new complaints. Review of Systems - Review of Systems All systems reviewed & are unremarkable except as noted in [facility] and [facility] Medical History: Medical History (Last Updated 06/23/23 @ 10:27 by Nolan Louis DO) History of intracranial hemorrhage HTN (hypertension), benign Seizure Surgical History: Surgical History (Last Updated 06/23/23 @ 10:27 by Nolan Louis DO) History of repair of hip fracture Family History: Family History (Last Updated 06/23/23 @ 10:28 by Nolan Louis DO) Grandparent Carcinoma of colon - Social History Social History: Social History (Last Reviewed 06/21/23 @ 14:05 by Den Andrade MD) Alcohol Use: Alcohol intake: former Substance Use: Substance use: never Substance use type: does not use Others: Spiritual care concerns: No Smoking Status: Smoking status: Former smoker Second hand tobacco smoke exposure: No Smoking end date: 05/16/22 Smoking Pack-years: Smoking cigarettes per day: 10 Years smoked: 50 Smoking pack-years: 25.00 Social Determinants of Health: Do You Feel Safe in your Home?: Yes Has the Lack of Transportation Kept You From Medical Appointments or From Getting Medications?: No Within the Past 12 Months, Were You Worried Whether Your Food Would Run Out Before You Got Money to Buy More?: Never True What is Your Housing Situation Today?: I Have Housing Are You Worried That in the Next 2 Months, You May Not Have Your Own Housing to Live In?: No Do You Have Trouble Paying Your Heating Or Electricity Bill?: No Do You Have Trouble Paying For Medicines?: No Are You Currently Unemployed and Looking for Work?: No Highest Level of Education Completed: High School Diploma/GED Do You Have Trouble With Childcare or the Care of a Family Member?: No Exam - Vital Signs Vital Signs - 24 hr 06/23/23 20:15 06/23/23 20:00 06/24/23 05:28 Temperature 36.9 C 36.8 C Pulse Rate 97 100 Respiratory Rate 16 16 Blood Pressure 164/99 H 160/81 H Pulse Oximetry 100 96 96 Oxygen Delivery Nasal Cannula Oxygen Flow Rate 2 06/23/23 20:00 06/24/23 00:00 06/24/23 04:00 Temperature Pulse Rate 84 78 70 Respiratory Rate Blood Pressure Pulse Oximetry Oxygen Delivery Oxygen Flow Rate 06/24/23 10:22 06/24/23 14:00 06/24/23 15:41 Temperature 36.2 C L Pulse Rate 95 Respiratory Rate 20 Blood Pressure 124/62 Pulse Oximetry 100 Oxygen Delivery Nasal Cannula Nasal Cannula Oxygen Flow Rate 3 3 - Exam HEENT: EOMI, PERRLA, mucous membranes moist and pink Neck: supple Lungs: clear to auscultation, normal air movement Heart: no murmurs, gallops, or rubs, regular rhythm, regular rate Abdomen: abdomen soft, non-distended, normal bowel sounds Extremities: normal pulses, cyanosis Integumentary: no abnormalities, cellulitis Neurological: normal gait Psychological: mental status NL, mood NL - Lab Results Laboratory Last Values WBC 4.1 K/mm3 (4.5-10.0) L 06/24/23 06:56 RBC 2.61 M/mm3 (4.2-5.4) L 06/24/23 06:56 Hgb 7.5 g/dL (12.0-15.0) L 06/24/23 06:56 Hct 26.2 % (37.0-47.0) L 06/24/23
[2023-06-24] MEDS: SUCRALFATE SUSP 100 MG/ML 10 ML UDC 1000 MG PO (21:33)
[2023-06-25] VITALS (10 sets, daily range): BP systolic 86–134; BP diastolic 42–84; PULSE 66–90; RESP 16–20; TEMP 36.4–37.3; O2SAT 94–100
[2023-06-25 07:20] LABS: Basophils Percent Auto 0.8 % (0.2-1.2); Eosinophils Absolute Auto 0.3 K/mm3 (0-0.3); Eosinophils Percent Auto 8.3 % (0-4.4); Hematocrit 25.2 % (37.0-47.0); Hemoglobin 7.4 g/dL (12.0-15.0); Immature Granulocyte Absolute 0.01 K/mm3 (0.00-0.031); Immature Granulocyte Percent A 0.3 % (0-0.5); Lymphocytes Absolute Auto 0.96 K/mm3 (0.9-3.2); Lymphocytes Percent Auto 24.2 % (18.3-44.2); Mean Corpuscular HGB Conc 29.4 g/dl (32-36); Mean Corpuscular Hemoglobin 29.4 pg (26-34); Mean Platelet Volume 9.3 fl (7.4-10.4); Monocytes Absolute Auto 0.4 K/mm3 (0.1-0.6); Monocytes Percent Auto 10.3 % (2.6-8.5); Neutrophils Absolute Auto 2.2 K/mm3 (1.3-6.7); Neutrophils Percent Auto 56.1 % (45.5-73.1); Platelet Count Result 185 k/mm3 (150-375); Red Blood Count 2.52 M/mm3 (4.2-5.4); Red Cell Distribution Width 19.8 % (11.5-14.5)
[2023-06-25 07:35] LABS: Alanine Aminotransferase 8 U/L (6-35); Albumin Level 2.7 g/dL (3.5-5.1); Alkaline Phosphatase 46 U/L (38-126); Anion Gap -3 mmol/L (8-16); Aspartate Amino Transferase 19 U/L (14-36); Bilirubin,Total 0.3 mg/dL (0.2-1.3); Blood Urea Nitrogen 8 mg/dL (7-17); Calcium 8.2 mg/dL (8.4-10.2); Carbon Dioxide 38 mmol/L (22-30); Chloride 101 mmol/L (98-107); Estimated CRCL calculation 40 ml/min; Estimated Glomerular Filt Rate > 60; Glucose 86 mg/dL (65-110); Magnesium 2.2 mg/dL (1.6-2.3); Potassium 3.8 mmol/L (3.4-5.0); Sodium 136 mmol/L (137-145)
[2023-06-25 07:47] LABS: Anisocytosis 1+ (NORMAL); Hypochromasia 1+ (NORMAL); Platelet Estimate Adequate (Adequate); Schistocytes None Seen (NORMAL)
[2023-06-25] MEDS: levETIRAcetam 500 MG TABLET PO ×2 (09:03→16:42)
[2023-06-25] MEDS: busPIRone HCL 5 MG TABLET PO ×2 (09:03→16:42)
[2023-06-25] MEDS: PANTOPRAZOLE 40 MG TABLET PO ×2 (09:03→16:42)
[2023-06-25] MEDS: METOPROLOL SUCCINATE EXT REL 50 MG TABCR PO (09:03)
[2023-06-25] MEDS: SPIRONOLACTONE 50 MG TABLET PO (09:03)
[2023-06-25] MEDS: FERROUS SULFATE 325 MG TABLET DR PO ×2 (09:03→16:42)
[2023-06-25] MEDS: EMPAGLIFLOZIN 25 MG TABLET PO (09:03)
[2023-06-25] MEDS: SERTRALINE HCL 50 MG TABLET PO (09:03)
[2023-06-25] MEDS: CHOLECALCIFEROL 1,000 UNITS TABLET 2000 UNITS PO (09:03)
[2023-06-25] MEDS: amLODIPine BESYLATE 5 MG TABLET PO (09:03)
[2023-06-25] MEDS: SUCRALFATE SUSP 100 MG/ML 10 ML UDC 1000 MG PO ×4 (09:06→21:54)
--- NOTE | 2023-06-25 14:50 | PM.IMPN ---
Progress Note: A&P Assessment and Plan (1) Anemia: Code(s): D64.9 - Anemia, unspecified Status: Acute Assessment and Plan: hb 7.4, pretransfusion iron profile isat 16, IV iron 700/1000mg monitor h and H, transfusion threshold at 7 got hb monitor one more day (2) Acute GI bleeding: Code(s): K92.2 - Gastrointestinal hemorrhage, unspecified Status: Acute Assessment and Plan: For colonoscopy today IVF monitor (3) Hypertension: Code(s): I10 - Essential (primary) hypertension Status: Acute Assessment and Plan: titrate home meds with clinical course (4) Femur fracture, left: Code(s): S72.92XA - Unspecified fracture of left femur, initial encounter for closed fracture Status: Acute Assessment and Plan: continue PT/OT, PRn pain control will continue rehab on discharge (5) Seizures: Code(s): R56.9 - Unspecified convulsions Status: Acute Assessment and Plan: continue home meds (6) Intraparenchymal hemorrhage of brain: Code(s): I61.9 - Nontraumatic intracerebral hemorrhage, unspecified Status: Acute Assessment and Plan: No anticoagulation and antiplatelets (7) AAA (abdominal aortic aneurysm): Code(s): I71.40 - Abdominal aortic aneurysm, without rupture, unspecified Status: Acute Assessment and Plan: 3.4cm continue outpatient monitoring (8) Rectal mass: Code(s): K62.89 - Other specified diseases of anus and rectum Status: Acute Assessment and Plan: s/p colonoscopy GSurgery eval noted, GI will continue follow outpatient Will monitor patient one more day and if hemoglobin continue to be stable Plan 83-year-old female presented with the anemia she is a [facility] routine blood work was done which showed hemoglobin of 5.7. No chest pain abdominal pain shortness of breath. She reported some black stool on admission not on any anticoagulant. Does have chronic anemia with baseline hemoglobin around 8. Guaiac-positive stool started on Protonix and transfusion. CT scan of the abdomen showed under 5 cm abdominal aortic aneurysm GI was consulted. Colonoscopy 06/22/2023 with rectal mass. Partially obstructing 30 mm x 40 mm mass culture rectum. Mass appeared at the depth of 8 mm from the annulus. Biopsies were taken. General surgery consulted. Will need a repeat endoscopy with tattooing to adequately identify this either surgical ER at follow-up endoscopies. Pending result of biopsy. Likely need MRI of the pelvis appears low in rectum and likely needs colorectal surgeon for evaluation. This could be performed as an outpatient basis. Biopsy confirms adeno carcinoma Needs colorectal surgery as an outpatient basis. Will also need to establish with Oncology. MRI pelvis as recommended has been obtained results pending. H&H remained stable. History of intracranial bleed Hypertension 3.4 cm infrarenal aneurysm Hypoxia on 3 L nasal cannula continue to taper oxygen down as chronic cocci hypoxic respiratory failure oxygenation [facility] when medically stable Subjective Date/time seen: 06/25/23 14:50 Interval history: 83-year-old female presented with the anemia she is a resident of the local [facility] where routine blood work was done which showed hemoglobin of 5.7. No chest pain abdominal pain shortness of breath. She reported some black stool on admission not on any anticoagulant. Does have chronic anemia with baseline hemoglobin around 8. Guaiac-positive stool started on Protonix and transfusion. CT scan of the abdomen showed under 5 cm abdominal aortic aneurysm GI was consulted. Colonoscopy 06/22/2023 with rectal mass. Partially obstructing 30 mm x 40 mm mass culture rectum. Mass appeared at the depth of 8 mm from the annulus. Biopsies were taken. General surgery consulted. Will need a repeat endoscopy wit
--- NOTE | 2023-06-25 15:12 | PC.NURSE ---
DIRECTOR OF [employer]PER[employer] informed RN of blood pressure of 80's/40's. RN manually re-checked and BP read 86/42. MD Mason called and made aware. No bolus at this time, pt is asymptomatic. Re-check in 1 hour. Metoprolol 50mg decreased to 25mg daily. Spironolactone on hold. Keep Lisinopril on hold. New IV access gained in L[facility]KA 22G
[2023-06-26] VITALS (7 sets, daily range): BP systolic 114–146; BP diastolic 56–69; PULSE 63–82; RESP 16; TEMP 37.2; O2SAT 95–98
[2023-06-26 07:19] LABS: Basophils Percent Auto 0.8 % (0.2-1.2); Eosinophils Absolute Auto 0.4 K/mm3 (0-0.3); Eosinophils Percent Auto 8.1 % (0-4.4); Hematocrit 25.6 % (37.0-47.0); Hemoglobin 7.4 g/dL (12.0-15.0); Immature Granulocyte Absolute 0.01 K/mm3 (0.00-0.031); Immature Granulocyte Percent A 0.2 % (0-0.5); Lymphocytes Absolute Auto 0.92 K/mm3 (0.9-3.2); Lymphocytes Percent Auto 18.2 % (18.3-44.2); Mean Corpuscular HGB Conc 28.9 g/dl (32-36); Mean Corpuscular Hemoglobin 29.1 pg (26-34); Mean Corpuscular Volume 100.8 fl (80-100); Mean Platelet Volume 9.5 fl (7.4-10.4); Monocytes Absolute Auto 0.5 K/mm3 (0.1-0.6); Monocytes Percent Auto 10.5 % (2.6-8.5); Neutrophils Absolute Auto 3.2 K/mm3 (1.3-6.7); Neutrophils Percent Auto 62.2 % (45.5-73.1); Platelet Count Result 180 k/mm3 (150-375); Red Blood Count 2.54 M/mm3 (4.2-5.4); Red Cell Distribution Width 19.4 % (11.5-14.5); White Blood Count 5.1 K/mm3 (4.5-10.0)
[2023-06-26 07:31] LABS: Alanine Aminotransferase 8 U/L (6-35); Albumin Level 2.6 g/dL (3.5-5.1); Alkaline Phosphatase 46 U/L (38-126); Anion Gap -4 mmol/L (8-16); Aspartate Amino Transferase 18 U/L (14-36); Bilirubin,Total 0.3 mg/dL (0.2-1.3); Blood Urea Nitrogen 9 mg/dL (7-17); Calcium 8.4 mg/dL (8.4-10.2); Carbon Dioxide 39 mmol/L (22-30); Chloride 102 mmol/L (98-107); Estimated CRCL calculation 40 ml/min; Estimated Glomerular Filt Rate > 60; Glucose 87 mg/dL (65-110); Magnesium 2.3 mg/dL (1.6-2.3); Sodium 137 mmol/L (137-145)
[2023-06-26] MEDS: SUCRALFATE SUSP 100 MG/ML 10 ML UDC 1000 MG PO ×2 (08:00→12:23)
[2023-06-26] MEDS: FERROUS SULFATE 325 MG TABLET DR PO (08:00)
[2023-06-26] MEDS: EMPAGLIFLOZIN 25 MG TABLET PO (08:01)
[2023-06-26] MEDS: levETIRAcetam 500 MG TABLET PO (08:02)
[2023-06-26] MEDS: METOPROLOL SUCCINATE EXT REL 25 MG TABCR PO (08:02)
[2023-06-26] MEDS: SERTRALINE HCL 50 MG TABLET PO (08:02)
[2023-06-26] MEDS: busPIRone HCL 5 MG TABLET PO (08:03)
[2023-06-26] MEDS: PANTOPRAZOLE 40 MG TABLET PO (08:03)
[2023-06-26] MEDS: CHOLECALCIFEROL 1,000 UNITS TABLET 2000 UNITS PO (08:03)
[2023-06-26] MEDS: amLODIPine BESYLATE 5 MG TABLET PO (08:03)
--- NOTE | 2023-06-26 10:42 | PM.DS ---
DS: Admitting Diagnosis Discharge Date 06/26/2023 Admitting Diagnosis Rectal bleed/anemia DS: Discharge Diagnosis Discharge Diagnosis (1) Anemia: Code(s): D64.9 - Anemia, unspecified Status: Acute (2) Acute GI bleeding: Code(s): K92.2 - Gastrointestinal hemorrhage, unspecified Status: Acute (3) Hypertension: Code(s): I10 - Essential (primary) hypertension Status: Acute (4) Femur fracture, left: Code(s): S72.92XA - Unspecified fracture of left femur, initial encounter for closed fracture Status: Acute (5) Seizures: Code(s): R56.9 - Unspecified convulsions Status: Acute (6) Intraparenchymal hemorrhage of brain: Code(s): I61.9 - Nontraumatic intracerebral hemorrhage, unspecified Status: Acute (7) AAA (abdominal aortic aneurysm): Code(s): I71.40 - Abdominal aortic aneurysm, without rupture, unspecified Status: Acute (8) Rectal mass: Code(s): K62.89 - Other specified diseases of anus and rectum Status: Acute DS: Summary Hospital Course Hospital Course: 83-year-old female presented with the anemia she is a resident of the local assisted where routine blood work was done which showed hemoglobin of 5.7.? No chest pain abdominal pain shortness of breath.? She reported some black stool on admission not on any anticoagulant.? Does have chronic anemia with baseline hemoglobin around 8.? Guaiac-positive stool started on Protonix and transfusion.? CT scan of the abdomen showed under 5 cm abdominal aortic aneurysm GI was consulted.? Colonoscopy 06/22/2023 with rectal mass.? Partially obstructing 30 mm x 40 mm mass culture rectum.? Mass appeared at the depth of 8 mm from the annulus.? Biopsies were taken.? General surgery consulted.? She will need a repeat endoscopy with tattooing to adequately identify this either surgical ER at follow-up endoscopies.? 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 MRI pelvis performed. General surgery was consulted in the hospital stay who recommended outpatient colorectal surgery evaluation. The mass appears low in rectum and likely needs colorectal surgeon for evaluation.? She will be referred to Dr. David Vogel at [facility] for evaluation as an outpatient basis. Oncology also consulted during the hospital stay. She will be followed up by Oncology team as an outpatient basis. H&H remained stable post transfusion. She will be going to [facility] for continued rehabilitation. History of intracranial bleed Hypertension 3.4 cm infrarenal aneurysm Hypoxia on 3 L nasal cannula continue to taper oxygen down as chronic cocci hypoxic respiratory failure oxygenation Time Spent with Patient Time attestation: Total time spent providing and/or coordinating discharge services: 40 minutes Exam Narrative: GENERAL: Well-appearing, well-nourished, and in no acute distress. HEAD: Normocephalic, atraumatic. EYES: PERRLA and EOMI. ENT: Nares clear, no rhinorrhea or epistaxis. Mucous membranes moist. NECK: Supple. CHEST: Clear to auscultation. No respiratory distress. HEART: Regular rate and rhythm. No murmur heard. Normal peripheral pulses. ABDOMEN: Soft, nontender, nondistended, normal active bowel sounds. : Stool is black / will colored and is guaiac positive EXTREMITIES: Normal range of motion. No edema. SKIN: Warm, dry, no rash. NEURO: No focal deficits. Alert and oriented x3. PSYCH: Normal mood and affect. DS: Data Data Completed and Pending Completed studies during hospitalization: Pending at discharge 06/22/23 15:00 Surgical [PTH] Routine Labs on day of discharge: Labs from last 24 hours 06/26/23 06:23 WBC 5.1 RBC 2.54 L Hgb 7.4 L Hct 25.6 L MCV 100.8 H MCH 29.1 MCHC 28.9 L RDW 19.4 H Plt Count 180 MPV 9.5 Immature Gran % (Auto) 0.2 Neut % (Auto) 62.2 Lymph % (Auto) 18.2 L [place] % (Auto) 10.5 H Eos % (Auto) 8.1 H Baso % (Auto)
[2023-06-26 12:27] LABS: SARS-CoV-2 RNA PCR Negative (Negative)
== END 2023-06-26 13:30 | DRG 375 ==
LOC: ANHED 07:16 → ANH3MEDSUR 08:42
PROVIDERS: Internal Medicine; Internal Medicine Gastroenterology; Surgery; Admitting Provider Internal Medicine; Emergency Provider Emergency Medicine; PCP Hospitalist; Visit Provider Internal Medicine
PROC: 0DJD8ZZ Inspection of Lower Intestinal Tract, Via Natural or Artificial Opening Endoscopic (ICD-10-PCS; CPT 45378; principal; 2023-06-22 14:00)
DX: C20 Malignant neoplasm of rectum (principal); K92.2 Gastrointestinal hemorrhage, unspecified; D64.9 Anemia, unspecified; I10 Essential (primary) hypertension; I71.40 Abdominal aortic aneurysm, without rupture, unspecified; R56.9 Unspecified convulsions; S72.92XD Unspecified fracture of left femur, subsequent encounter for closed fracture with routine healing; Z87.891 Personal history of nicotine dependence; Z86.73 Personal history of transient ischemic attack (TIA), and cerebral infarction without residual deficits
CPT/HCPCS: 36415; 36430; 72197; 74177; 80053; 81001; 82378; 82607; 82728; 82746; 83540; 83550; 83605; 83690; 83735; 85014; 85018; 85025; 85610; 85730; 86850; 86900; 86901; 86923; 87635; 88305; 96361; 96374; 96375; 96376; 97161; 97166; 99285; A9270; A9577; C9113; G0378; J1756; J2001; J2704; J7030; J7050; J7120; P9016; P9047; Q9967

== ENCOUNTER 2023-07-11 11:07 | Emergency (ER) | payer MEDICARE, SELFPAY ==
[2023-07-11] VITALS (58 sets, daily range): BP systolic 111–127; BP diastolic 52–69; PULSE 64–88; RESP 13–22; TEMP 36.4–36.7; O2SAT 56–100
--- NOTE | ~2023-07-11 | XR_ITS ---
EXAMINATION: XR chest 1V portable INDICATION: Shortness of breath TECHNIQUE: Portable AP chest at 1137 hours COMPARISON: 06/09/2022 FINDINGS: There are small pleural effusions. There are airspace opacities of the lung bases. There is no pneumothorax. Cardiomegaly is noted. IMPRESSION: 1. Small pleural effusions with associated bibasilar airspace opacities, atelectasis versus pneumonia . 2. Cardiomegaly. Reviewed, dictated and finalized at location [facility]. [facility] IMPRESSION: 1. Small pleural effusions with associated bibasilar airspace opacities, atelec tasis versus pneumonia. 2. Cardiomegaly.
[2023-07-11] MEDS: PANTOPRAZOLE SODIUM IV 40 MG VIAL IV PUSH (11:27)
[2023-07-11 11:41] LABS: Basophils Percent Auto 0.8 % (0.2-1.2); Eosinophils Percent Auto 0.6 % (0-4.4); Hematocrit 23.8 % (37.0-47.0); Immature Granulocyte Absolute 0.02 K/mm3 (0.00-0.031); Immature Granulocyte Percent A 0.4 % (0-0.5); Lymphocytes Absolute Auto 0.87 K/mm3 (0.9-3.2); Lymphocytes Percent Auto 16.4 % (18.3-44.2); Mean Corpuscular HGB Conc 28.6 g/dl (32-36); Mean Corpuscular Hemoglobin 30.1 pg (26-34); Mean Corpuscular Volume 105.3 fl (80-100); Mean Platelet Volume 9.2 fl (7.4-10.4); Monocytes Absolute Auto 0.4 K/mm3 (0.1-0.6); Monocytes Percent Auto 7.3 % (2.6-8.5); Neutrophils Percent Auto 74.5 % (45.5-73.1); Platelet Count Result 300 k/mm3 (150-375); Red Blood Count 2.26 M/mm3 (4.2-5.4); Red Cell Distribution Width 17.7 % (11.5-14.5); White Blood Count 5.3 K/mm3 (4.5-10.0)
[2023-07-11 11:43] LABS: Hemoglobin 6.8 g/dL (12.0-15.0)
[2023-07-11 11:51] LABS: Alanine Aminotransferase 17 U/L (6-35); Alkaline Phosphatase 61 U/L (38-126); Anion Gap -3 mmol/L (8-16); Aspartate Amino Transferase 26 U/L (14-36); Bilirubin,Total 0.2 mg/dL (0.2-1.3); Blood Urea Nitrogen 13 mg/dL (7-17); Calcium 8.6 mg/dL (8.4-10.2); Carbon Dioxide 38 mmol/L (22-30); Chloride 99 mmol/L (98-107); Estimated CRCL calculation 36 ml/min; Estimated Glomerular Filt Rate > 60; Glucose 104 mg/dL (65-110); Potassium 4.3 mmol/L (3.4-5.0); Sodium 134 mmol/L (137-145)
[2023-07-11 11:54] LABS: INR 0.9; Partial Thromboplastin Time 26.8 SECONDS (22.3-36.8); Prothrombin Time 12.7 Seconds (11.1-14.7)
--- NOTE | 2023-07-11 12:08 | ED.GENADULT ---
HPI - General Adult General Chief complaint: GI Bleed Stated complaint: low hgb, COVID+, bloody stool History of Present Illness HPI narrative: 83-year-old female presenting to the emergency department for evaluation anemia and passing blood with flatulence. Patient does have a recent diagnosis of a rectal mass that was confirmed to be an adenocarcinoma. Two weeks ago patient was seen and [facility] for bleeding and patient had a colonoscopy which identified the rectal mass. Patient was scheduled to have follow-up with Colorectal surgery at [place]. Patient had a worsening hemoglobin and was brought to the emergency department for evaluation. Upon arrival to ED patient is alert and appropriate. Patient denies any other complaints other than the bright red blood per rectum intermittently. Related Data Home Medications Medication Instructions Recorded Confirmed acetaminophen 500 mg capsule 500 mg PO Q6H PRN Pain 06/07/23 07/11/23 buspirone 5 mg tablet 5 mg PO BID 06/07/23 07/11/23 cholecalciferol (vitamin D3) 25 50 mcg PO DAILY 06/07/23 07/11/23 mcg (1,000 unit) tablet dapagliflozin propanediol 10 mg 10 mg PO DAILY 06/07/23 07/11/23 tablet (Farxiga) ferrous sulfate 325 mg (65 mg 325 mg PO BID 06/07/23 07/11/23 iron) tablet,delayed release fexofenadine 180 mg tablet 180 mg PO DAILY PRN Allergy 06/07/23 07/11/23 Symptoms fluticasone propionate 50 2 spray intranasal DAILY PRN 06/07/23 07/11/23 mcg/actuation nasal Allergy Symptoms spray,suspension ipratropium 0.5 mg-albuterol 3 mg 3 ml inhalation Q6H PRN Shortness 06/07/23 07/11/23 (2.5 mg base)/3 mL nebulization Of Breath Or Wheezing soln levetiracetam 500 mg tablet 500 mg PO BID 06/07/23 07/11/23 pantoprazole 40 mg tablet,delayed 40 mg PO BID 06/07/23 07/11/23 release sertraline 50 mg tablet 50 mg PO DAILY 06/07/23 07/11/23 sucralfate 100 mg/mL oral 10 ml PO QID 06/07/23 07/11/23 suspension albuterol sulfate 2.5 mg/3 mL 2.5 mg inhalation BID PRN SOB 06/21/23 07/11/23 (0.083 %) solution for nebulization amlodipine 5 mg tablet 5 mg PO DAILY pain 06/21/23 07/11/23 dextromethorphan-guaifenesin 30 1 tablet PO Q12H PRN Cough 06/21/23 06/30/23 mg-600 mg tablet extended [id number] hr (Mucinex DM) hydrocodone 5 mg-acetaminophen 325 1 tablet PO Q4H PRN Pain 06/21/23 06/30/23 mg tablet loperamide 2 mg capsule (Imodium 2 mg PO Q4H PRN Diarrhea 06/21/23 07/11/23 A-D) Allergies Allergy/AdvReac Type Severity Reaction Status Date / Time No Known Allergies Allergy Verified 07/11/23 11:23 Review of Systems Review of Systems: All systems reviewed & are unremarkable except as noted in HPI and below PMFSH Past Medical History Medical History (Updated 07/13/23 @ 00:01 by Cara Rice) History of intracranial hemorrhage HTN (hypertension), benign Seizure Surgical History Surgical History (Updated 06/24/23 @ 17:15 by Christian Anderson MD) History of repair of hip fracture Family History Family History (Updated 06/23/23 @ 10:28 by Nolan Louis DO) Grandparent Carcinoma of colon Social History Social History Years smoked: 50 Smoking status: Former smoker Second hand tobacco smoke exposure: No Smoking end date: 05/16/22 Alcohol intake: former Substance use: never Substance use type: does not use Do You Feel Safe in your Home?: Yes Lack of Transportation: No Lack of Food: Never True Current Housing: I Have Housing Concerned About Future Housing: No Difficulty Paying Gas/Electric Bills: No Difficulty Paying for Meds: No Currently Unemployed: No Education: High School Diploma/GED Difficulty w/ Childcare or Family Care: No Spiritual care concerns: No Exam Narrative: APPEARANCE: Well appearing, no pain, no distress, well-nourished. HEAD: normocephalic, atraumatic. EYES: PERRLA/EOMI, conjunctivae clear. NOSE: Normal no drainag
[2023-07-11 12:19] LABS: Hypochromasia 3+ (NORMAL); Schistocytes None Seen (NORMAL)
[2023-07-11 12:20] LABS: Platelet Estimate Adequate (Adequate); Polychromasia 1+ (NORMAL); Stomatocytes 2+ (NORMAL)
[2023-07-11 13:09] LABS: Influenza A QL RT-PCR Negative (Negative); Influenza B QL RT-PCR Negative (Negative); RSV RNA, RT-PCR Negative (Negative); SARS-CoV-2 RNA PCR Negative (Negative)
[2023-07-11] MEDS: SODIUM CHLORIDE 0.9% IV 250 ML 30 ML IV CONT (13:52)
[2023-07-11] MEDS: TUBING, BLOOD PLUM PUMP TUBING 1 EACH XX ×2 (14:05→17:26)
--- NOTE | 2023-07-11 16:25 | PC.NURSE ---
Clear liquid tray ordered for pt
[2023-07-11] MEDS: SODIUM CHLORIDE 0.9% IV 250 ML 30 ML (17:26)
--- NOTE | 2023-07-11 17:52 | PC.NURSE ---
Pt had liquid dark red stool, EDP made aware
--- NOTE | 2023-07-11 19:13 | PC.NURSE ---
Report given to Lawanda RINCON, all questions answered.
[2023-07-11 20:20] LABS: Hematocrit 35.8 % (37.0-47.0); Hemoglobin 10.9 g/dL (12.0-15.0)
[2023-07-11] MEDS: ACETAMINOPHEN 500 MG TABLET 1000 MG PO (20:33)
--- NOTE | 2023-07-11 21:43 | PC.NURSE ---
This RN called [facility] for update. No update at this time, message being sent out to placement at [place]. Will call back with update.
--- NOTE | 2023-07-11 22:22 | PC.NURSE ---
Rafael called and states patient is still considered COVID positive and will not get a bed tonight. Patient updated and ED stretcher switched out with hospital bed for comfort.
[2023-07-12] VITALS (30 sets, daily range): BP systolic 118–154; BP diastolic 59–76; PULSE 67–97; RESP 13–20; TEMP 36.4–36.8; O2SAT 95–100
[2023-07-12] MEDS: ALPRAZolam (*CRX) 0.5 MG TABLET PO (06:15)
--- NOTE | 2023-07-12 07:41 | PC.NURSE ---
Assumed care, pt resting quietly with eyes closed & reg resp. Continue to waiting for transfer to [facility]
--- NOTE | 2023-07-12 10:32 | PC.NURSE ---
Sofya MARCUM phoned ER for pt pt update. POC reviewed with Sofya
--- NOTE | 2023-07-12 11:17 | PC.NURSE ---
RN called [facility] for update. Spoke with Radha pt update given including negative COVID result. Radha states will notify pt placement.
--- NOTE | 2023-07-12 13:31 | PC.NURSE ---
Spoke with [facility] transfer at [phone]-Informed them patient is testing negative for covid, [place]yenne said there were some discharges so she would call and see if a bed will be open for patient. But for now patient remains on wait list for a bed.
--- NOTE | 2023-07-12 13:33 | PC.NURSE ---
Pt given clear liquid tray. Denies any c/o at this time
--- NOTE | 2023-07-12 15:14 | PC.NURSE ---
Pt ate 75% of clear liquid diet tray. POA at bedside, pt denies any c/o at this time
--- NOTE | 2023-07-12 17:02 | PC.NURSE ---
Clear liquid diet tray ordered for pt. Pt denies any c/o at this time.
--- NOTE | 2023-07-12 18:09 | PC.NURSE ---
RN phoned [facility] transfer line inquiring about pts status for transfer. Per Radha continue to wait for discharges.
[2023-07-12 19:04] LABS: Hemoglobin 11.7 g/dL (12.0-15.0)
--- NOTE | 2023-07-12 20:25 | PC.NURSE ---
This RN took over care of pt @[id number]
[2023-07-12] MEDS: ALPRAZolam (*CRX) 0.5 MG TABLET 0.25 MG PO (23:19)
== END 2023-07-12 23:57 | disposition short-term general hospital (02) ==
PROVIDERS: Emergency Provider Emergency Medicine; PCP Hospitalist
DX: D64.9 Anemia, unspecified (principal); K62.5 Hemorrhage of anus and rectum; C20 Malignant neoplasm of rectum; Z20.822 Contact with and (suspected) exposure to COVID-19; I10 Essential (primary) hypertension; Z87.891 Personal history of nicotine dependence; Z86.16 Personal history of COVID-19
CPT/HCPCS: 36415; 36430; 71045; 80053; 85014; 85018; 85025; 85610; 85730; 86850; 86900; 86901; 86923; 87637; 96361; 96374; 99285; A9270; C9113; J7050; P9016